=== PATIENT | male | born 1960 | race Caucasian/White ===

== ENCOUNTER 2020-12-01 06:58 | Outpatient (REF) | payer BC, SELFPAY ==
[2020-12-01 07:19] LABS: COVID-19 Test Negative (Negative); IDNOW Serial# 55D5AD1C
== END 2020-12-01 06:59 | disposition home or self-care (01) ==
LOC: HO.LAB 06:58
PROVIDERS: Visit Provider Internal Medicine
DX: Z20.822 Contact with and (suspected) exposure to COVID-19 (principal)
CPT/HCPCS: 36415; 87635; C9803

== ENCOUNTER 2021-01-09 16:11 | Emergency (ER) | payer OTHER, BC, SELFPAY ==
--- NOTE | ~2021-01-09 | XR_ITS ---
EXAMINATION: XR CHEST CLINICAL INFORMATION: Shortness of breath COMPARISON: Chest x-ray 03/16/2009 TECHNIQUE: Frontal portable view of the chest was obtained. 4:41 PM FINDINGS: No significant abnormality is noted involving the heart, lungs, mediastinum, bony thorax or soft tissues. XR/XR chest 1V IMPRESSION: Unremarkable examination.
--- NOTE | 2021-01-09 16:13 | ECG_ITS ---
Test Reason : HIGH BLOOD PRESSURE Blood Pressure : / mmHG Vent. Rate : 083 BPM Atrial Rate : 083 BPM P-R Int : 154 ms QRS Dur : 092 ms QT Int : 340 ms P-R-T Axes : 061 009 023 degrees QTc Int : 399 ms Normal sinus rhythm Normal ECG No previous ECGs available Referred By: Generic ED Physician Electronically Signed By:PARISH CASTORENA MD
[2021-01-09 16:25] VITALS: BP 130/77; PULSE 86; RESP 16; TEMP 36.6; O2SAT 98; BMI 28.8
[2021-01-09 17:57] LABS: MANUAL DIFF FLAG NO
[2021-01-09 17:59] LABS: Basophils Absolute Auto 0.1 X10*3/uL (0.0-0.2); Basophils Percent Auto 0.5 % (0-2); Eosinophils Absolute Auto 0.1 X10*3/uL (0.0-0.4); Eosinophils Percent Auto 0.8 % (0-4); Hematocrit 40.8 % (42-52); Hemoglobin 13.9 g/dl (14.0-18.0); Imm Gran Abs Auto 0.04 X10*3/uL (0.00-0.03); Imm Gran Pct Auto 0.4 % (0.0-0.4); Lymphocytes Absolute Auto 1.3 X10*3/uL (1.2-4.9); Lymphocytes Percent Auto 12.4 % (20-40); Mean Corpuscular HGB Conc 34.1 g/dl (31.0-36.0); Mean Corpuscular Hemoglobin 29.2 pg (27.0-33.0); Mean Corpuscular Volume 85.7 fL (80-98); Mean Platelet Volume 11.9 fL (9.4-12.4); Monocytes Absolute Auto 0.6 X10*3/uL (0.1-1.2); Neutrophils Absolute Auto 8.2 X10*3/uL (2.0-8.3); Neutrophils Percent Auto 79.9 % (45-73); Platelet Count 205 X10*3/uL (160-400); Red Blood Count 4.76 X10*6/uL (4.60-5.80); Red Cell Distribution Width 11.9 % (11.0-16.0); White Blood Count 10.2 X10*3/uL (4.8-10.8)
[2021-01-09 18:22] VITALS: BP 118/71; PULSE 73; RESP 16; O2SAT 97
[2021-01-09 18:24] LABS: Anion Gap 16 (12-20); Blood Urea Nitrogen 15 mg/dL (9-16); Calcium 9.2 mg/dL (8.4-10.2); Carbon Dioxide 21 mmol/L (22-29); Chloride 104 mmol/L (96-108); Creatinine Clr Calc Pharmacy 92.1; Estimated Glomerular Filt Rate > 60; Glucose Random 104 mg/dL (60-115); Potassium 4.2 mmol/L (3.3-5.1); Sodium 137 mmol/L (135-145)
--- NOTE | 2021-01-09 18:59 | ED_ITS ---
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, at that time he had no chest pain shortness of breath or dizziness no palpitations no other symptoms but a co-worker noticed is flushed face and took his blood pressure which was 2 12 He went home several hours later and felt like his heart was racing and then came to the ER for evaluation, on arrival to the ER he is asymptomatic with no chest pain no palpitations no shortness of breath no nausea, he never had any diaphoresis or sweating He does have medical history of hypertension and diabetes and is compliant with medications Related Data Allergies Allergy/AdvReac Type Severity Reaction Status Date / Time No Known Allergies Allergy Unverified 07/31/20 14:43 Review of Systems Review of Systems: Positive for an episode of palpitation and facial flushing, which are both resolved Negatives are no dizziness no fainting no feeling faint no lightheadedness no fever no chills no headache no neck pain no chest pain no shortness of breath no sweating no abdominal pain no nausea no vomiting no leg swelling, no leg pain, n o rash, no numbness or weakness, no confusion Yes all other systems are reviewed and are negative [facility] Past Medical History Attestation statement: The following information was validated with the patient. [facility] Narrative: Patient has medical history of diabetes and hypertension, no cardiac history Social History Social History Advance Directives: No Advance Directives Information Provided: Yes Physical Exam Vital Signs: Vital Signs: Last Vital Signs Temp 97.9 F 01/09/21 16:25 Pulse 74 01/09/21 20:10 Resp 14 01/09/21 20:10 BP 118/73 01/09/21 20:10 Pulse Ox 97 01/09/21 20:10 Body Mass Index 28.8 * General appearance is no acute distress, comfortable relaxed and cooperative The head is normocephalic atraumatic, normal color no flushing no sweating The neck is supple The chest is clear to auscultation bilaterally with full symmetric equal breath sounds The heart rate and rhythm regular no murmurs Abdomen soft nontender Extremities no edema no calf tenderness or swelling Neuro is no focal deficit, no facial asymmetry, no motor deficit noted, no sensory deficit noted, cranial nerves 2-12 intact as tested, cerebellar was no rmal, verbal interaction and understanding were normal Course Course Course Narrative: Patient with history of diabetes and hypertension had an EKG which did not show any evidence of acute myocardial infarction Initial troponin was 7.0 , repeat was 8.7 Patient remains comfortable and asymptomatic with normal vital signs Heart score was 3, case was discussed with attending physician presume and dec ision was made to discharge patient for further evaluation but off work until cleared MDM - Arrhythmia/Palpitations Lab Data Attestation: I reviewed the patient's lab results. Result diagrams: 01/09/21 17:14 01/09/21 17:14 Labs: Lab Results 01/09/21 01/09/21 01/09/21 Range/Units 17:14 17:14 17:14 WBC 10.2 (4.8-10.8) X10*3/uL RBC 4.76 (4.60-5.80) X10*6/uL Hgb 13.9 L (14.0-18.0) g/dl Hct 40.8 L (42-52) % MCV 85.7 (80-98) fL MCH 29.2 (27.0-33.0) pg MCHC 34.1 (31.0-36.0) g/dl RDW 11.9 (11.0-16.0) % Plt Count 205 (160-400) X10*3/uL MPV 11.9 (9.4-12.4) fL Immature Gran % (Auto) 0.4 (0.0-0.4) % Neut % (Auto) 79.9 H (45-73) % Lymph % (Auto) 12.4 L (20-40) % Mitchell % (Auto) 6.0 (2-11) % Eos % (Auto) 0.8 (0-4) % Baso % (Auto) 0.5 (0-2) % Lymph # (Auto) 1.3 (1.2-4.9) X10*3/uL Mitchell # (Auto) 0.6 (0.1-1.2) X10*3/uL Eos # (Auto) 0.1 (0.0-0.4) X10*3/uL Baso # (Auto) 0.1 (0.0-0.2) X10*3/uL Abs Immat Gran (auto) 0.04 H (0.00-0.03) X10*3/uL Absolute Neuts (auto) 8.2 (2.0-8.3) X10*3/uL Absolute Nucleated RBC 0.000 (0.0-0.012) X10*3/uL Nucleated RBC % (auto) 0.0 (0.0-0.2) /100WBC Sodium 137 (135-145) mmol/L Potassium 4.2 (3.3-5.1) mmol/L Chloride 104 (96-108) mmol/L Carbon Dioxide 21 L (22-29) mmol/L Anion Gap 16 (12-20) BUN 15 (9-16) mg/dL Creatinine 0.98 (0.5-1.4) mg/dL Estim Creat Clear Calc 92.1 Estimated GFR > 60 Random Glucose 104 (60-115) mg/dL Calcium 9.2 (8.4-10.2) mg/dL Troponin I High Sens 7.0 (<3.5-35.0) ng/L 01/09/21 Range/Units 20:12 WBC (4.8-10.8) X10*3/uL RBC (4.60-5.80) X10*6/uL Hgb (14.0-18.0) g/dl Hct (42-52) % MCV (80-98) fL MCH (27.0-33.0) pg MCHC (31.0-36.0) g/dl RDW (11.0-16.0) % Plt Count (160-400) X10*3/uL MPV (9.4-12.4) fL Immature Gran % (Auto) (0.0-0.4) % Neut % (Auto) (45-73) % Lymph % (Auto) (20-40) % Mitchell % (Auto) (2-11) % Eos % (Auto) (0-4) % Baso % (Auto) (0-2) % Lymph # (Auto) (1.2-4.9) X10*3/uL Mitchell # (Auto) (0.1-1.2) X10*3/uL Eos # (Auto) (0.0-0.4) X10*3/uL Baso # (Auto) (0.0-0.2) X10*3/uL Abs Immat Gran (auto) (0.00-0.03) X10*3/uL Absolute Neuts (auto) (2.0-8.3) X10*3/uL Absolute Nucleated RBC (0.0-0.012) X10*3/uL Nucleated RBC % (auto) (0.0-0.2) /100WBC Sodium (135-145) mmol/L Potassium (3.3-5.1) mmol/L Chloride (96-108) mmol/L Carbon Dioxide (22-29) mmol/L Anion Gap (12-20) BUN (9-16) mg/dL Creatinine (0.5-1.4) mg/dL Estim Creat Clear Calc Estimated GFR Random Glucose (60-115) mg/dL Calcium (8.4-10.2) mg/dL Troponin I High Sens 8.7 (<3.5-35.0) ng/L ECG Data Interpretation: EKG was a normal sinus rhythm at a rate of 83 MS was normal at 154 QRS duration was normal at 92 QT was normal, there are no acute ST changes, no acute ischemic changes Scores Heart Score History: -0- slightly suspicious ECG: -0- normal Age: -1- >45 - <65 Risk factory: -1- 1 or 2 risk factors Troponin: -1- >1 - <3x normal limit Score: 3 Risk: 1.7% Discharge Plan Discharge Clinical Impression: Palpitations Patient Disposition: Home, Self-Care Additional Instructions: Workup here showed very unlikely to have had an acute heart attack today But we are concerned about the symptoms with exertion so advise you should follow with primary care doctor for clearance to return to full duties at work, and if needed referral to Cardiology if needed for possible stress testing or Holter monitor for arrhythmias, so call primary care doctor tomorrow, or with work connection as this was a work-related event Return to ER any time for chest pain, shortness of breath, difficulty breathing, irregular heartbeat feeling dizzy or faint, any worse condition or any concerns Stand Alone Forms: Work/School Release
--- NOTE | 2021-01-09 19:54 | PC.NURSE ---
Pt awake and alert, oriented. Breathing equal and unlabored. Denies chest pain. Skin warm and well perfused. Vitals stable. NSR on desk monitor with rate in 70s. No distress noted. Plan for repeat trop. No distress, call murillo within reach.
[2021-01-09 20:10] VITALS: BP 118/73; PULSE 74; RESP 14; O2SAT 97
[2021-01-09 20:44] LABS: Troponin-I High Sensitivity 8.7 ng/L (<3.5-35.0)
== END 2021-01-09 21:38 | disposition home or self-care (01) ==
PROVIDERS: Physician Assistant Medical; Emergency Provider Emergency Medicine; PCP Internal Medicine
DX: R00.2 Palpitations (principal); I49.9 Cardiac arrhythmia, unspecified; R06.02 Shortness of breath; I10 Essential (primary) hypertension; E11.9 Type 2 diabetes mellitus without complications; Z79.899 Other long term (current) drug therapy
CPT/HCPCS: 36415; 71045; 80048; 84484; 85025; 93005; 99283; 99284

== ENCOUNTER 2021-02-20 13:02 | Emergency (ER) | payer BC, SELFPAY ==
--- NOTE | ~2021-02-20 | XR_ITS ---
EXAMINATION: XR CHEST CLINICAL INFORMATION: Palpitations COMPARISON: Chest radiographs 01/09/2021, 03/16/2009 TECHNIQUE: Portable upright AP view of the chest was obtained. FINDINGS: The lungs are clear. The vascularity is normal. The heart is normal in size. There is no vascular congestion, airspace consolidation, or effusion. The costophrenic sulci are clear. The hilar and mediastinal contours are normal. There are scattered degenerative changes thoracic spine. XR/XR chest 1V IMPRESSION: Unremarkable examination.
[2021-02-20 13:11] VITALS: BP 141/68; PULSE 90; RESP 22; TEMP 36.8; O2SAT 97; BMI 28.7
--- NOTE | 2021-02-20 13:17 | ED_ITS ---
HPI - Arrhythmia/Palpitations General Chief Complaint: Arrhythmia/Palpitations Stated Complaint: irregular heartbeat Time Seen by Provider: 02/20/21 13:12 Source: patient Mode of arrival: ambulatory Limitations: no limitations History of Present Illness complaint: skipped beats Onset (ago): hour(s) (started around 5 am for 10 minutes then 1 to hours ago for 10 minutes ) Duration: now resolved Severity: moderate Context: occurred during rest Associated symptoms: denies other symptoms Related Data Allergies Allergy/AdvReac Type Severity Reaction Status Date / Time No Known Allergies Allergy Unverified 07/31/20 14:43 Review of Systems Review of Systems: Constitutional : No Fever, No Chills ENT/Mouth : No sore throat, No Rhinorrhea, No Swallowing Difficulty Eyes: No Eye Pain, No Swelling, No Redness Cardiovascular : No Chest Pain, no SOB, No Orthopnea, no Edema, pos palpitations Respiratory : No Cough, No Sputum, No Wheezing, no dyspnea Gastrointestinal : No Nausea, No Vomiting, No Diarrhea, No abdominal Pain, No Hematochezia, No Melena Genitourinary : No Dysuria, No Urinary Frequency, No Hematuria Musculoskeletal : No joint pain, No Myalgias Skin : No Skin Lesions, No rash Neuro : No Weakness, No Numbness, No Dizziness, No Headache Psych : No Anxiety/Panic, No Depression Heme/Lymph: No Bruising, No Lymphadenopathy Endocrine : No Polyuria, No Polydipsia All other systems reviewed and are negative [facility] Past Medical History Attestation statement: The following information was validated with the patient. Medical History Diabetes Hypertension Social History Social History (Updated 02/20/21 @ 13:58 by Joyce Martinez DO) Smoking Status: Never smoker Use of substances other than those prescribed or required for medical reasons: No Advance Directives: Yes Advance Directives Information Provided: Yes Advance Directives on File: No Physical Exam Vital Signs: Vital Signs: Last Vital Signs Temp 98.3 F 02/20/21 13:11 Pulse 90 02/20/21 13:11 Resp 22 H 02/20/21 13:11 BP 141/68 H 02/20/21 13:11 Pulse Ox 97 02/20/21 13:11 Body Mass Index 28.7 Appearance: Alert. Oriented X3. No acute distress. Eyes: Pupils equal, round and reactive to light. ENT: Pharynx normal. Neck: Normal inspection. Neck supple. CVS: Normal heart rate and rhythm. Pulses normal. Respiratory: No respiratory distress. Breath sounds normal. Abdomen: Soft and nontender. Skin: Skin warm and dry. Normal skin color. Normal skin turgor. Extremities: No lower extremity edema. No calf ttp Neuro: Oriented X 3. No motor deficit. No sensory deficit. Course Course Course Narrative: negative workup rest of thyroid panel pending, no events noted on EKG will need follow up with PCP for results as well as Holter Monitor - stable for DC MDM - Arrhythmia/Palpitations MDM Narrative Medical decision making narrative: 60 yo male with HTN, DM here with intermittent bouts of palpitations lasting 10 minutes felt pulse it was irregular no hx of this no increased caffeine no associated CP/SOB/nausea/dizziness, will obtain labs lytes EKG and keep on monitor given symptoms doubt PE/ACS dispo per results and findings. Lab Data Result diagrams: 02/20/21 13:24 02/20/21 13:25 Labs: Lab Results 02/20/21 02/20/21 02/20/21 Range/Units 13:24 13:24 13:24 WBC 6.9 (4.8-10.8) X10*3/uL RBC 5.31 (4.60-5.80) X10*6/uL Hgb 15.3 (14.0-18.0) g/dl Hct 45.2 (42-52) % MCV 85.1 (80-98) fL MCH 28.8 (27.0-33.0) pg MCHC 33.8 (31.0-36.0) g/dl RDW 11.9 (11.0-16.0) % Plt Count 244 (160-400) X10*3/uL MPV 11.6 (9.4-12.4) fL Immature Gran % (Auto) 0.3 (0.0-0.4) % Neut % (Auto) 61.7 (45-73) % Lymph % (Auto) 23.2 (20-40) % [place] % (Auto) 11.1 H (2-11) % Eos % (Auto) 3.1 (0-4) % Baso % (Auto) 0.6 (0-2) % Lymph # (Auto) 1.6 (1.2-4.9) X10*3/uL [place] # (Auto) 0.8 (0.1-1.2) X10*3/uL Eos # (Auto) 0.2 (0.0-0.4) X10*3/uL Baso # (Auto) 0.0 (0.0-0.2) X10*3/uL Abs Immat Gran (auto) 0.02 (0.00-0.03) X10*3/uL Absolute Neuts (auto) 4.2 (2.0-8.3) X10*3/uL Absolute Nucleated RBC 0.000 (0.0-0.012) X10*3/uL Nucleated RBC % (auto) 0.0 (0.0-0.2) /100WBC Hold Blue Top SEE NOTE Sodium (135-145) mmol/L Potassium (3.3-5.1) mmol/L Chloride (96-108) mmol/L Carbon Dioxide (22-29) mmol/L Anion Gap (12-20) BUN (9-16) mg/dL Creatinine (0.5-1.4) mg/dL Estim Creat Clear Calc Estimated GFR Random Glucose (60-115) mg/dL Calcium (8.4-10.2) mg/dL Magnesium (1.6-2.6) mg/dL Total Bilirubin (0.0-1.0) mg/dL Direct Bilirubin (0.0-0.5) mg/dL AST (5-37) U/L ALT (0-40) U/L Alkaline Phosphatase (39-117) U/L Troponin I High Sens < 3.5 D (<3.5-35.0) ng/L B-Natriuretic Peptide < 10 (<100) pg/mL Total Protein (6.5-8.0) g/dL Albumin (3.5-5.0) g/dL Lipase (8-78) U/L TSH (0.32-4.0) uIU/mL 02/20/21 Range/Units 13:25 WBC (4.8-10.8) X10*3/uL RBC (4.60-5.80) X10*6/uL Hgb (14.0-18.0) g/dl Hct (42-52) % MCV (80-98) fL MCH (27.0-33.0) pg MCHC (31.0-36.0) g/dl RDW (11.0-16.0) % Plt Count (160-400) X10*3/uL MPV (9.4-12.4) fL Immature Gran % (Auto) (0.0-0.4) % Neut % (Auto) (45-73) % Lymph % (Auto) (20-40) % [place] % (Auto) (2-11) % Eos % (Auto) (0-4) % Baso % (Auto) (0-2) % Lymph # (Auto) (1.2-4.9) X10*3/uL [place] # (Auto) (0.1-1.2) X10*3/uL Eos # (Auto) (0.0-0.4) X10*3/uL Baso # (Auto) (0.0-0.2) X10*3/uL Abs Immat Gran (auto) (0.00-0.03) X10*3/uL Absolute Neuts (auto) (2.0-8.3) X10*3/uL Absolute Nucleated RBC (0.0-0.012) X10*3/uL Nucleated RBC % (auto) (0.0-0.2) /100WBC Hold Blue Top Sodium 136 (135-145) mmol/L Potassium 4.9 (3.3-5.1) mmol/L Chloride 102 (96-108) mmol/L Carbon Dioxide 23 (22-29) mmol/L Anion Gap 16 (12-20) BUN 25 H D (9-16) mg/dL Creatinine 1.15 (0.5-1.4) mg/dL Estim Creat Clear Calc 78.3 Estimated GFR > 60 Random Glucose 223 H D (60-115) mg/dL Calcium 10.0 D (8.4-10.2) mg/dL Magnesium 2.0 (1.6-2.6) mg/dL Total Bilirubin 1.2 H (0.0-1.0) mg/dL Direct Bilirubin 0.4 (0.0-0.5) mg/dL AST 21 (5-37) U/L ALT 32 (0-40) U/L Alkaline Phosphatase 92 (39-117) U/L Troponin I High Sens (<3.5-35.0) ng/L B-Natriuretic Peptide (<100) pg/mL Total Protein 7.3 (6.5-8.0) g/dL Albumin 4.6 (3.5-5.0) g/dL Lipase 147 H (8-78) U/L TSH < 0.01 L (0.32-4.0) uIU/mL ECG Data Attestation: I personally reviewed and interpreted this ECG as follows: ECG interpretation date: 02/20/21 ECG interpretation time: 13:43 Interpretation: Rate: 88 Rhythm: NSR [place]: normal Normal P waves. Normal LALA. Normal QRS complex. ST T wave : normal no JD qTC: normal prior studies: no acute ischemia The study has been interpreted contemporaneously by me. . Discharge Plan Discharge Clinical Impression: Palpitations, Abnormal TSH Patient Disposition: Home, Self-Care Instructions: Heart Palpitations (ED) Additional Instructions: return to ED for any worsening symptoms or concerns YOUR THYROID TEST SHOWED IT MIGHT BE OVERACTIVE, THERE IS A PANEL PENDING YOUR DOCTOR SHOULD BE ABLE TO FOLLOW UP ON TUESDAY YOU NEED AN ECHO WELL A HOLTER MONITOR PLEASE CALL YOUR DOCTOR TUESDAY Referrals: Chilo Garcia MD [Primary Care Provider] - 3 days (Tuesday ) Stand Alone Forms: Work/School Release
--- NOTE | 2021-02-20 13:18 | ECG_ITS ---
Test Reason : HEART PALP Blood Pressure : / mmHG Vent. Rate : 088 BPM Atrial Rate : 088 BPM P-R Int : 146 ms QRS Dur : 088 ms QT Int : 340 ms P-R-T Axes : 069 024 022 degrees QTc Int : 411 ms Sinus rhythm Normal EKG When compared with ECG of 09-JAN-2021 16:18, No significant changes seen Referred By: Joyce Martinez Electronically Signed By:KARLI CASTRO
[2021-02-20 13:30] LABS: MANUAL DIFF FLAG NO
[2021-02-20 13:32] LABS: Basophils Percent Auto 0.6 % (0-2); Eosinophils Absolute Auto 0.2 X10*3/uL (0.0-0.4); Eosinophils Percent Auto 3.1 % (0-4); Hematocrit 45.2 % (42-52); Hemoglobin 15.3 g/dl (14.0-18.0); Imm Gran Abs Auto 0.02 X10*3/uL (0.00-0.03); Imm Gran Pct Auto 0.3 % (0.0-0.4); Lymphocytes Absolute Auto 1.6 X10*3/uL (1.2-4.9); Lymphocytes Percent Auto 23.2 % (20-40); Mean Corpuscular HGB Conc 33.8 g/dl (31.0-36.0); Mean Corpuscular Hemoglobin 28.8 pg (27.0-33.0); Mean Corpuscular Volume 85.1 fL (80-98); Mean Platelet Volume 11.6 fL (9.4-12.4); Monocytes Absolute Auto 0.8 X10*3/uL (0.1-1.2); Monocytes Percent Auto 11.1 % (2-11); Neutrophils Absolute Auto 4.2 X10*3/uL (2.0-8.3); Neutrophils Percent Auto 61.7 % (45-73); Platelet Count 244 X10*3/uL (160-400); Red Blood Count 5.31 X10*6/uL (4.60-5.80); Red Cell Distribution Width 11.9 % (11.0-16.0); White Blood Count 6.9 X10*3/uL (4.8-10.8)
[2021-02-20 13:59] LABS: B Type Natriuretic Peptide < 10 pg/mL (<100); Troponin-I High Sensitivity < 3.5 ng/L (<3.5-35.0)
[2021-02-20 14:15] LABS: Alanine Aminotransferase 32 U/L (0-40); Albumin Level 4.6 g/dL (3.5-5.0); Alkaline Phosphatase 92 U/L (39-117); Anion Gap 16 (12-20); Aspartate Amino Transferase 21 U/L (5-37); Bilirubin Direct 0.4 mg/dL (0.0-0.5); Bilirubin Total 1.2 mg/dL (0.0-1.0); Blood Urea Nitrogen 25 mg/dL (9-16); Carbon Dioxide 23 mmol/L (22-29); Chloride 102 mmol/L (96-108); Creatinine Clr Calc Pharmacy 78.3; Estimated Glomerular Filt Rate > 60; Glucose Random 223 mg/dL (60-115); Lipase 147 U/L (8-78); Potassium 4.9 mmol/L (3.3-5.1); Sodium 136 mmol/L (135-145); Total Protein 7.3 g/dL (6.5-8.0)
[2021-02-20 14:16] LABS: Thyroid Stimulating Hormone < 0.01 uIU/mL (0.32-4.0)
[2021-02-20 15:08] LABS: T4 Thyroxine 9.8 ug/dL (4.5-12.0)
[2021-02-21 07:52] LABS: Triiodothyronine T3 Free 4.4 pg/mL (2.3-4.2)
== END 2021-02-20 15:19 | disposition home or self-care (01) ==
PROVIDERS: Emergency Provider Emergency Medicine; PCP Internal Medicine
DX: I49.9 Cardiac arrhythmia, unspecified (principal); R79.89 Other specified abnormal findings of blood chemistry
CPT/HCPCS: 36415; 71045; 80048; 80076; 83690; 83735; 83880; 84436; 84443; 84481; 84484; 85025; 93005; 99283

== ENCOUNTER 2021-11-18 11:43 | Outpatient (REF) | payer BC, SELFPAY ==
[2021-11-18 12:58] LABS: Influenza A PCR NEGATIVE (Negative); Influenza B PCR NEGATIVE (Negative); Resp Syncy Virus RNA Qual PCR NEGATIVE (Negative); SARS COV2 PCR INHOUSE POSITIVE (Negative)
== END 2021-11-18 11:44 | disposition home or self-care (01) ==
LOC: HO.LNP 11:43
PROVIDERS: Visit Provider Nurse Practitioner Family
DX: Z20.822 Contact with and (suspected) exposure to COVID-19 (principal); R43.0 Anosmia; R09.81 Nasal congestion
CPT/HCPCS: 0241U

== ENCOUNTER 2022-11-15 17:45 | Emergency (ER) | payer BC, SELFPAY ==
[2022-11-15 17:50] VITALS: BP 137/79; PULSE 60; RESP 16; O2SAT 99; BMI 29.5
--- NOTE | 2022-11-15 18:53 | ED.DENTAL ---
HPI - Dental/Oral General Chief complaint: Dental/Oral Stated complaint: abcess in tooth? Time Seen by Provider: 11/15/22 18:25 Source: patient Mode of arrival: ambulatory Limitations: no limitations History of Present Illness HPI Narrative: Patient with left lower dental abscess. Patient unable to see dentist or go to walk-in clinic. Complaint: tooth pain Related Data Home Medications Medication Instructions Recorded Confirmed atorvastatin 40 mg tablet 40 mg PO DAILY 11/18/21 blood-glucose sensor (Dexcom G6 #3 ea 11/18/21 Sensor device) blood-glucose transmitter (Dexcom #1 ea 11/18/21 G6 Transmitter device) dulaglutide 1.5 mg/0.5 mL mg subcut 11/18/21 subcutaneous pen injector (Trulicity) empagliflozin 25 mg tablet 25 mg PO DAILY 11/18/21 (Jardiance) insulin aspart U-100 100 unit/mL subcut 11/18/21 (3 mL) subcutaneous pen (Novolog Flexpen U-100 Insulin aspart) insulin glargine U-300 conc 300 unit subcut 11/18/21 unit/mL (1.5 mL) subcutaneous pen (Toujeo SoloStar U-300 Insulin) insulin lispro 100 unit/mL 1,000 - 1,500 unit subcut TID 11/18/21 subcutaneous pen (Humalog KwikPen (U-100) Insulin) lisinopril 20 mg tablet 20 mg PO DAILY 11/18/21 metformin 500 mg tablet,extended 1,000 mg PO BID 11/18/21 release 24 hr pen needle, diabetic 31 gauge x #50 ea 11/18/21 3/16 (BD Ultra-Fine Mini Pen Needle) Previous Rx's Medication Instructions Recorded clindamycin HCl 300 mg capsule 300 mg PO BID 7 days #14 caps 11/15/22 Allergies Allergy/AdvReac Type Severity Reaction Status Date / Time No Known Allergies Allergy Verified 11/18/21 09:14 Review of Systems Review of Systems: Yes all other systems are reviewed and are negative Constitutional: Constitutional: Denies fever(s) Eyes: Eyes: Denies eye discharge and Denies eye pain ENT: Reports dental pain, Denies otalgia and Denies nasal discharge Cardiovascular: Cardiovascular: Denies chest pain and Denies dyspnea Respiratory: Respiratory: Denies cough and Denies dyspnea Gastrointestinal: Gastrointestinal: Denies diarrhea and Denies vomiting Integumentary/Breasts: Skin/Breast: Denies rash Neurologic: Denies Abnormal speech present [facility] Past Medical History Attestation statement: The following information was validated with the patient. Source: old records reviewed and nursing notes reviewed Medical History Diabetes Hypertension Social History Social History Advance Directives: No Advance Directives Information Provided: No Physical Exam Vital Signs: Vital Signs: Last Vital Signs Pulse 60 11/15/22 17:50 Resp 16 11/15/22 17:50 BP 137/79 11/15/22 17:50 Pulse Ox 99 11/15/22 17:50 O2 Del Method 11/15/22 17:50 BMI result Body Mass Index 29.5 Const: General: cooperative, healthy appearing, comfortable and no acute distress Orientation/consciousness: patient oriented x3 Limitations: no limitations HEENT: Other: No trismus Head: Yes normal to inspection Face and sinus: Yes normal facial exam Mouth: Normal oral and palatal mucosa present, lip normal and tongue normal Teeth image: 1. Dental abscess with pointing-local swelling, erythema and tenderness Throat: Yes posterior oropharynx normal, Yes tonsils normal and Yes uvula midline Eyes: General: appearance normal, both eyes and all related structures Pupils: Equal, round and reactive pupils present Neck: Neck: Yes normal visual inspection, Yes full ROM and Yes no lymphadenopathy Resp: Effort & Inspection: normal respiratory effort Neuro: General: patient oriented x3 and moves all extremities Cranial nerves: Yes Equal, round and reactive pupils present Cognition (Neuro): normal cognition Speech: No Abnormal speech present Gait exam (Neuro): Normal gait present Medical Decision Making Medical Decision Making MDM Narrative: 61-year-old male here with left lower dental abscess. See procedure note for I&D. Patient will be started on oral antibiotics. No evidence of trismus. No evidence of Isaiah's angina. Patient nontoxic appearing Differential Diagnosis Differential Diagnoses: The differential diagnosis associated with the presentation includes See above Tests considered The following testing was considered but not selected: No need for CT imaging-no trismus, no significant swelling this suggest deeper abscess Prescription Management I considered prescription management with: Antibiotic Chronic Conditions Patient?s care impacted by: Diabetes Procedures Abscess I/D Site: oral Side (if applicable): left Local Anesthetic: other anesthetic (benzocaine) Technique: incised with blade Sent for culture/gram staining?: No Irrigation: No Packing used?: none Discharge Plan Discharge Clinical Impression: Dental abscess Patient Disposition: Home, Self-Care Instructions: Dental Abscess (ED) Additional Instructions: Follow-up with dental clinic [facility]ony esqueda Prescriptions: New clindamycin HCl 300 mg capsule 300 mg PO BID 7 Days Qty: 14 0RF No Action Toujeo SoloStar U-300 Insulin 300 unit/mL (1.5 mL) insulin pen subcut Trulicity 1.5 mg/0.5 mL pen injector subcut Jardiance 25 mg tablet 25 mg PO DAILY (DME) Dexcom G6 Sensor Device See Rx Instructions topical Q10D Qty: 3 Rx Instructions: As directed lisinopril 20 mg tablet 20 mg PO DAILY atorvastatin 40 mg tablet 40 mg PO DAILY (DME) Dexcom G6 Transmitter Device See Rx Instructions .ROUTE .MEDSUPPLY Qty: 1 Rx Instructions: As directed (DME) pen needle, diabetic [BD Ultra-Fine Mini Pen Needle] 31 gauge x 3/16 needle See Rx Instructions subcut DAILY Qty: 50 Rx Instructions: As directed metformin 500 mg tablet extended release 24 hr 1,000 mg PO BID insulin lispro [Humalog KwikPen Insulin] 100 unit/mL insulin pen 1,000 - 1,500 unit subcut TID insulin aspart U-100 [Novolog Flexpen U-100 Insulin] 100 unit/mL (3 mL) insulin pen subcut Referrals: Chilo Garcia MD [Primary Care Provider] - 1 week (as needed)
== END 2022-11-15 19:00 | disposition home or self-care (01) ==
PROVIDERS: Emergency Provider Internal Medicine; PCP Internal Medicine
DX: K04.7 Periapical abscess without sinus (principal); K08.89 Other specified disorders of teeth and supporting structures; E11.9 Type 2 diabetes mellitus without complications; I10 Essential (primary) hypertension; Z79.899 Other long term (current) drug therapy; Z79.4 Long term (current) use of insulin
CPT/HCPCS: 41800; 99282; 99284

== ENCOUNTER → 2022-12-14 09:24 | Outpatient (BNVA) | payer OTHER, SELFPAY | PROVIDERS: PCP Internal Medicine; Visit Provider Physician Assistant Medical | DX: S80.02XA Contusion of left knee, initial encounter (principal); W22.8XXA Striking against or struck by other objects, initial encounter | CPT/HCPCS: 99213 ==

== ENCOUNTER 2025-06-04 00:25 | Emergency (ER) | payer BC, SELFPAY ==
--- NOTE | 2025-06-04 | ECG_ITS ---
Test Reason : difficulty breathing Blood Pressure : */* mmHG Vent. Rate : 79 BPM Atrial Rate : 79 BPM P-R Int : 158 ms QRS Dur : 80 ms QT Int : 352 ms P-R-T Axes : 65 46 46 degrees QTcB Int : 403 ms Normal sinus rhythm Normal ECG When compared with ECG of 20-Feb-2021 13:09, Fusion complexes are no longer Present Premature ventricular complexes are no longer Present Premature supraventricular complexes are no longer Present Referred By: Generic ED Physician Electronically Signed By: Vinicio Ramos
--- NOTE | ~2025-06-04 | XR_ITS ---
CLINICAL HISTORY: SOB 1 view chest x-ray Comparison: None provided Findings: The lungs are clear. Heart size is normal. No acute fracture. IMPRESSION: 1. No acute findings. This document has been electronically signed by: Spencer Martinez MD on 06/04/2025 01:52:50
[2025-06-04 00:33] VITALS: BP 131/71; PULSE 83; RESP 20; TEMP 36.7; O2SAT 93; BMI 32.0
[2025-06-04 00:57] LABS: MANUAL DIFF FLAG NO
[2025-06-04 01:09] LABS: Hematocrit 42.4 % (42.0-52.0); Hemoglobin 14.6 g/dl (14.0-18.0); Imm Gran Abs Auto 0.04 X10*3/uL (0.00-0.03); Imm Gran Pct Auto 0.4 % (0.0-0.4); Lymphocytes Absolute Auto 1.5 X10*3/uL (1.2-4.9); Mean Corpuscular HGB Conc 34.4 g/dl (31.0-36.0); Mean Corpuscular Hemoglobin 29.3 pg (27.0-33.0); Mean Corpuscular Volume 85.0 fL (80.0-98.0); NRBC Abs Auto 0.000 X10*3/uL (0.0-0.012); NRBC Pct Auto 0.0 /100WBC (0.0-0.2); Platelet Count 216 X10*3/uL (160-400); Red Blood Count 4.99 X10*6/uL (4.60-5.80); White Blood Count 9.6 X10*3/uL (4.8-10.8)
[2025-06-04 01:31] LABS: Alanine Aminotransferase 30 U/L (0-40); Albumin Level 4.6 g/dL (3.5-5.0); Alkaline Phosphatase 85 U/L (39-117); Anion Gap 16 (12-20); Aspartate Amino Transferase 37 U/L (5-37); Blood Urea Nitrogen 25 mg/dL (9-16); Calcium 9.4 mg/dL (8.4-10.2); Carbon Dioxide 21 mmol/L (22-29); Chloride 108 mmol/L (96-108); Creatinine Clr Calc Pharmacy 58.5; Estimated Glomerular Filt Rate 46; Potassium 4.4 mmol/L (3.3-5.1); Sodium 141 mmol/L (135-145); Total Protein 7.2 g/dL (6.5-8.0)
[2025-06-04 01:37] LABS: Troponin-I High Sensitivity 4.8 ng/L (<3.5-35.0)
[2025-06-04 01:45] LABS: Resp Syncy Virus RNA Qual PCR NEGATIVE (Negative); SARS COV2 PCR INHOUSE NEGATIVE (Negative)
[2025-06-04 03:15] VITALS: BP 138/74; PULSE 76; RESP 20; TEMP 36.5; O2SAT 95
--- OUTSIDE RECORDS SUMMARY | 2025-06-04 03:29 | XMS_ITS | Clinical Summary ---
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 Name Role Phone Unavailable Primary Care Provider Unavailabl e Social History Tobacco Use Types Packs/Day Years Used Date Smoking Tobacco: Never Assessed Sex and Gender Information Value Date Recorded Sex Assigned at Not on file Gender Identity Not on file Sexual Orientation Not on file Job Start Date Occupation Industry Not on file Not on file Not on file Plan of Treatment Health Maintenance Due Date Last Done Comments Hepatitis C Screening 1961 COVID-19 Vaccine (#1) 05/19/1962 Depression Screening 1973 Preventative Health Evaluation 1979 DTap / Tdap / Td (1 - Tdap) 1980 Colon Cancer Screening (Colonoscopy) 2006 Shingrix-Zoster Vaccine (1 of 2) 2011 Influenza Vaccine (#1) 2025 RSV Adult > 60+ Yrs or Pregn ant (1 - 1-dose 75+ series) 2036 Hepatitis B Vaccines Aged Out No long er eligible based on patient's age to complete this topic Pneumococcal Vaccine Aged Out No long er eligible based on patient's age to complete this topic RSV Ped < 20 months Aged Out No longe r eligible based on patient's age to complete this topic
--- OUTSIDE RECORDS SUMMARY | 2025-06-04 03:29 | XMS_ITS | Clinical Summary ---
Author Organization [facility] Address [address] [place] [phone] Phone Care Team Providers Care Computer Systems Information Director Name Role Phone Unavailable Primary Care Provider Unavailabl e Medications aspirin 81 MG EC tablet Take 81 mg by mouth. 03/26/2024 Active atorvastatin (LIPITOR) 40 MG tablet Take 40 mg by mouth daily. Active Active Problems Problem Noted Date Diagnosed Date Class 1 obesity 02/21/2025 Diabetes 02/21/2025 Graves disease 02/21/2025 Hypertension 02/21/2025 Social History Tobacco Use Types Packs/Day Years Used Date Smoking Tobacco: Never Assessed Sex and Gender Information Value Date Recorded Sex Assigned at Male 02/21/2025 11:46 PM EDT Legal Sex Male 8:34 PM EDT Gender Identity Male 02/21/2025 11:46 PM EDT Sexual Orientation Not on file Plan of Treatment Not on file Medical Devices Not on file Insurance [facility] P[facility] EPO [facility] Additional Source Comments The information contained in this document represents components of the legal health record. It is not the complete legal health record.[facility]
[2025-06-04 05:52] VITALS: BP 124/77; PULSE 70; RESP 22; TEMP 36.8; O2SAT 95
--- NOTE | 2025-06-04 06:04 | ED_ITS ---
HPI - SOB/Dyspnea General Chief Complaint: Dyspnea Stated Complaint: diff breathing Time Seen by Provider: 06/04/25 05:49 Source: patient Mode of arrival: ambulatory Limitations: no limitations History of Present Illness ED Provider: Dr. Yesenia Sandoval HPI Narrative: Patient comes to the emergency room complaining of a bit of wheezing and shortness of breath. Patient states that he does not have history of asthma or COPD. 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 Usually he uses a respirator but this time he did not. Patient states that he has been feeling very wheezy and short of breath for the last few days. Patient denies any chest pain. Related Data Home Medications ?Medication ?Instructions ?Recorded ?Confirmed atorvastatin 40 mg tablet 40 mg PO DAILY 11/18/21 blood-glucose sensor (Dexcom G6 #3 ea 11/18/21 Sensor device) blood-glucose transmitter (Dexcom #1 ea 11/18/21 G6 Transmitter device) dulaglutide 1.5 mg/0.5 mL mg subcut 11/18/21 subcutaneous pen injector (Trulicity) empagliflozin 25 mg tablet 25 mg PO DAILY 11/18/21 (Jardiance) insulin aspart U-100 100 unit/mL subcut 11/18/21 (3 mL) subcutaneous pen (Novolog FlexPen U-100 Insulin aspart) insulin glargine U-300 conc 300 unit subcut 11/18/21 unit/mL (1.5 mL) subcutaneous pen (Toujeo SoloStar U-300 Insulin) insulin lispro 100 unit/mL 1,000 - 1,500 unit subcut T ID 11/18/21 subcutaneous pen (Humalog KwikPen (U-100) Insulin) lisinopril 20 mg tablet 20 mg PO DAILY 11/18/21 metformin 500 mg tablet,extended 1,000 mg PO BID 11/18 release 24 hr pen needle, diabetic 31 gauge x #50 ea 11/18/2101/27 (BD Ultra-Fine Mini Pen Needle) Previous Rx's ?Medication ?Instructions ?Recorded clindamycin HCl 300 mg capsule 300 mg PO BID 7 days #1 4 caps 11/15/22 albuterol sulfate 90 mcg/actuation 2 puff inhalation Q 4-6H PRN 06/04/25 aerosol inhaler (Ventolin HFA) shortness of breath or wheezing #6.7 grams prednisone 50 mg tablet 50 mg PO DAILY #4 tabs 06/04 Allergies Allergy/AdvReac Type Severity Reaction Status Date / Time No Known Allergies Allergy Verified 06/04/25 00:38 Review of Systems 2 Review of Systems: Constitutional : No Weight loss, No Fever, No Chills, No Night Sweats, No Fatigue, No Malaise ENT/Mouth : No Hearing loss, No Ear Pain, No Nasal Congestion, No Sinus Pain, No Hoarseness, No sore throat, No Rhinorrhea, No Swallowing Difficulty Eyes: No Eye Pain, No Swelling, No Redness, No Foreign Body, No Discharge, No Vision Changes Cardiovascular : No Chest Pain, denies dyspnea on exertion, denies orthopnea or palpitations. Respiratory : Denies cough, complaining of mild wheezing and shortness of breath with exertion/wheezing Gastrointestinal : No Nausea, No Vomiting, No Diarrhea, No Constipation, No abdominal Pain, No Hematochezia, No Melena Genitourinary : no irregular bleeding, No Dysuria, No Urinary Frequency, No Hematuria, No Urinary Incontinence, No Urgency, No Flank Pain, No Urinary Flow Changes, No Hesitancy Musculoskeletal : No joint pain, No Myalgias, No Joint Swelling Skin : No Skin Lesions, No rash Neuro : No Weakness, No Numbness, No Paresthesias, No Loss of Consciousness, No Dizziness, No Headache Psych : No Anxiety/Panic, No Depression, No SI/HI/AH/VH, No Social Issues, Heme/Lymph: No Bruising, No Bleeding,No Lymphadenopathy Endocrine : No Polyuria, No Polydipsia, No Temperature Intolerance [facility] Past Medical History Medical History Hypertension Diabetes Social History Social History Smoked in Last 30 Days: No Use of substances other than those prescribed or required for medical reasons: No Advance Directives: No Advance Directives Information Provided: Yes Physical Exam 2 Exam: Exam: Appearance: Alert. Oriented X3. No acute distress. Eyes: Pupils equal, round and reactive to light. ENT: Pharynx normal. Neck: Normal inspection. Neck supple. No lymph nodes noted. No crepitus CVS: Normal heart rate and rhythm. Pulses normal. Normal S1 and S2 Respiratory: No respiratory distress. Mild bilateral wheezing, no rales or crackles Abdomen: Soft and nontender. No rigidity. No distention. Skin: Skin warm and dry. Normal skin color. Normal skin turgor. Extremities: No lower extremity edema. No Lacerations. No Rash Neuro: Oriented X 3. No motor deficit. No sensory deficit. Moving all extremities. No slurred speech. CN 2 through 12 grossly intact Psych: calm, cooperative, normal affect Vital Signs: Vital Signs: Last Vital Signs Temp 98.2 F 06/04/25 05:52 Pulse 70 06/04/25 05:52 Resp 22 H 06/04/25 05:52 BP 124/77 06/04/25 05:52 Pulse Ox 95 06/04/25 05:52 O2 Del Method Room Air 06/04/25 05:52 BMI result Body Mass Index 32.0 Course Course Course Narrative: Patient reports having shortness of breath and wheezing, started couple of days ago while sending would. Patient denies history of asthma or COPD. Denies fever or chills or shortness of breath. Medical Decision Making Medical Decision Making [facility] Narrative: My interpretation of chest x-ray: No acute findings. No significant abnormalities in patient's hematology . The chemistry shows a creatinine of 1.54. This is new for the patient since 2020. Patient states that his primary care physician noted that his troponin has been a bit elevated for the last 6 months. Patient has an appointment pending in the week. Serology negative, LFTs negative Patient received a dose of p.o. prednisone and an albuterol treatment for symptomatic treatment. Patient likely has pneumonitis Differential Diagnosis Differential Diagnoses: The differential diagnosis associated with the presentation includes (Pneumonitis, asthma exacerbation, chronic lung disease) Admission/Observation Consideration of admission/observation: Escalation of care including admission/observation considered (Given patient's physical exam, observation was considered) Lab Data [facility] Lab Attestation statement: I reviewed the patient's lab results. 06/04/25 00:53 06/04/25 00:53 Labs: Lab Results 06/04/25 Range/Units 00:53 WBC 9.6 (4.8-10.8) X10*3/uL RBC 4.99 (4.60-5.80) X10*6/uL Hgb 14.6 (14.0-18.0) g/dl Hct 42.4 (42.0-52.0) % MCV 85.0 (80.0-98.0) fL MCH 29.3 (27.0-33.0) pg MCHC 34.4 (31.0-36.0) g/dl RDW 13.2 (11.0-16.0) % Plt Count 216 (160-400) X10*3/uL MPV 11.6 (9.4-12.4) fL Immature Gran % (Auto) 0.4 (0.0-0.4) % Neut % (Auto) 68.5 (45-73) % Lymph % (Auto) 15.9 L (20-40) % [place] % (Auto) 7.6 (2-11) % Eos % (Auto) 7.1 H (0-4) % Baso % (Auto) 0.5 (0-2) % Lymph # (Auto) 1.5 (1.2-4.9) X10*3/uL [place] # (Auto) 0.7 (0.1-1.2) X10*3/uL Eos # (Auto) 0.7 H (0.0-0.4) X10*3/uL Baso # (Auto) 0.1 (0.0-0.2) X10*3/uL Abs Immat Gran (auto) 0.04 H (0.00-0.03) X10*3/uL Absolute Neuts (auto) 6.6 (2.0-8.3) x10*3/uL Absolute Nucleated RBC 0.000 (0.0-0.012) X10*3/uL Nucleated RBC % (auto) 0.0 (0.0-0.2) /100WBC Sodium 141 (135-145) mmol/L Potassium 4.4 (3.3-5.1) mmol/L Chloride 108 (96-108) mmol/L Carbon Dioxide 21 L (22-29) mmol/L Anion Gap 16 (12-20) BUN 25 H (9-16) mg/dL Creatinine 1.54 H (0.5-1.4) mg/dL Estim Creat Clear Calc 58.5 Estimated GFR 46 Random Glucose 178 H (60-115) mg/dL Calcium 9.4 (8.4-10.2) mg/dL Total Bilirubin 0.7 (0.0-1.0) mg/dL AST 37 (5-37) U/L ALT 30 (0-40) U/L Alkaline Phosphatase 85 (39-117) U/L Troponin I High Sens 4.8 (<3.5-35.0) ng/L Total Protein 7.2 (6.5-8.0) g/dL Albumin 4.6 (3.5-5.0) g/dL Influenza Type A (PCR) NEGATIVE (Negative) Influenza Type B (PCR) NEGATIVE (Negative) RSV RNA Qual (PCR) NEGATIVE (Negative) SARS-CoV-2 RNA (RT-PCR) NEGATIVE (Negative) Independent Interpretation I performed an independent interpretation of an: Plain X-Ray Radiology Impression Discussion of test interpretation with radiology: I have reviewed the radiologist's reading. Radiologist Impression: Findings: The lungs are clear. Heart size is normal. No acute fracture. IMPRESSION: 1. No acute findings Critical Care Time Critical Care Time Critical Care Time: Yes Total Critical Care Time: 35 Attestation: I have personally provided critical care time. Time includes review of lab data, radiology results, discussion with consultants, and monitoring for potential decompensation. Intervention performed as documented. Discharge Plan Discharge Clinical Impression: Pneumonitis Patient Disposition: Home, Self-Care Instructions: Wheezing (ED) Additional Instructions: Please follow-up with your primary care physician tomorrow. If you have any worsening or new symptoms, please return to the emergency room or call 911 Prescriptions: New albuterol sulfate [Ventolin HFA] 90 mcg/actuation HFA aerosol inhaler 2 puff inhalation Q4-6H PRN (Reason: shortness of breath or wheezing) Qty: 6.7 0RF prednisone 50 mg tablet 50 mg PO DAILY Qty: 4 0RF No Action clindamycin HCl 300 mg capsule 300 mg PO BID 7 Days Qty: 14 0RF [place] SoloStar U-300 Insulin 300 unit/mL (1.5 mL) insulin pen subcut Trulicity 1.5 mg/0.5 mL pen injector subcut Jardiance 25 mg tablet 25 mg PO DAILY (DME) Dexcom G6 Sensor Device See Rx Instructions topical Q10D Qty: 3 Rx Instructions: As directed lisinopril 20 mg tablet 20 mg PO DAILY atorvastatin 40 mg tablet 40 mg PO DAILY (DME) Dexcom G6 Transmitter Device See Rx Instructions .ROUTE .MEDSUPPLY Qty: 1 Rx Instructions: As directed (DME) pen needle, diabetic [BD Ultra-Fine Mini Pen Needle] 31 gauge x 3/16 needle See Rx Instructions subcut DAILY Qty: 50 Rx Instructions: As directed metformin 500 mg tablet extended release 24 hr 1,000 mg PO BID insulin lispro [Humalog KwikPen Insulin] 100 unit/mL insulin pen 1,000 - 1,500 unit subcut TID insulin aspart U-100 [Novolog FlexPen U-100 Insulin] 100 unit/mL (3 mL) insulin pen subcut Print Language: Telugu
[2025-06-04] MEDS: Albuterol Sulfate (0.083%) 2.5 MG/3 ML VIAL.NEB INHALE (06:08)
[2025-06-04 06:10] VITALS: BP 124/77; PULSE 68; PULSE 70; RESP 18; RESP 22; TEMP 36.8; O2SAT 95; O2SAT 97
== END 2025-06-04 06:34 | disposition home or self-care (01) ==
PROVIDERS: Emergency Provider Emergency Medicine; PCP Internal Medicine
DX: J67.8 Hypersensitivity pneumonitis due to other organic dusts (principal); R06.02 Shortness of breath; R06.2 Wheezing; E11.9 Type 2 diabetes mellitus without complications; I10 Essential (primary) hypertension; Z79.4 Long term (current) use of insulin; Z79.84 Long term (current) use of oral hypoglycemic drugs; Z79.02 Long term (current) use of antithrombotics/antiplatelets; Z79.85 Long-term (current) use of injectable non-insulin antidiabetic drugs; Z79.899 Other long term (current) drug therapy; Z03.818 Encounter for observation for suspected exposure to other biological agents ruled out
CPT/HCPCS: 71045; 80053; 84484; 85025; 87637; 93005; 94640; 99284; 99285

== ENCOUNTER → 2025-06-04 00:30 | Outpatient (BNV) | payer BC, SELFPAY | PROVIDERS: PCP Internal Medicine; Visit Provider Radiology Diagnostic Radiology | DX: R06.02 Shortness of breath (principal) | CPT/HCPCS: 71045 ==

== ENCOUNTER → 2025-06-04 00:44 | Outpatient (BNV) | payer BC, SELFPAY | PROVIDERS: Emergency Provider Emergency Medicine; PCP Internal Medicine; Visit Provider Internal Medicine Cardiovascular Disease | DX: R06.02 Shortness of breath (principal) | CPT/HCPCS: 93010 ==